=== PATIENT | female | born 1975 | race Caucasian/White ===

== ENCOUNTER 2021-09-13 01:06 | Emergency (ER) | payer MEDICAID ==
[~2021-09-13] VITALS: Ht 154.9 cm; Wt 73.0 kg
[2021-09-13] MEDS ORDERED: IBUPROFEN 600MG TABLET PO STA (01:53)
[2021-09-13] MEDS ORDERED: NAPR-681 PO (03:54)
[2021-09-13 04:14] VITALS: BP 138/76
== END 2021-09-13 04:15 | disposition home or self-care (01) ==
LOC: ER 01:06
DX: S00.83XA Contusion of other part of head, initial encounter (principal); M79.601 Pain in right arm; Y08.89XA Assault by other specified means, initial encounter; Y93.89 Activity, other specified; Y92.89 Other specified places as the place of occurrence of the external cause; Y99.8 Other external cause status; Z88.5 Allergy status to narcotic agent
CPT/HCPCS: 73110; 73130; 99284